=== PATIENT | female | born 1955 | race Caucasian/White ===

== ENCOUNTER → 2021-07-17 | Outpatient (CLI) | payer MEDICARE ==
[2015-10-12 10:07] VITALS: BP 115/74
[~2021-07-17] MED LIST: ASCO-78 PO; ASPI-630 PO; CIPR500T94 PO; FELO10TA4 PO; GLUC1TAB44 PO; HYDR-2761 PO; LISI1TAB37 PO; MULT-208 PO; OMEG500C PO; SIMV10TA15 PO; VENL150T PO; VITA-8 PO
--- NOTE | 2021-07-17 15:34 | KCIC ---
Examination: MRI of the left shoulder without contrast HISTORY: History of left shoulder pain COMPARISON: None TECHNIQUE: Multiplanar, multisequence MR imaging of the left shoulder performed without contrast FINDINGS: The long head of the biceps tendon within the bicipital groove. The attachment of the long head the b iceps tendon to the superior labral anchor grossly appears intact. The attachment of subscapularis te ndon grossly appears intact. There is full-thickness tear of the supraspinatus tendon with tendon ret raction measuring 1.2 cm. There is extension of fluid from the shoulder joint into the subacromial watkins bdeltoid bursa. The attachment of the infraspinatus tendon grossly appears intact.Moderate increased T2 signal identified in the subscapularis, supraspinatus, infraspinatus tendon likely tendinosis. The acromion is type II. Acromion is type II. There is mild increased signal identified throughout th e labrum likely degenerative change. Moderate degenerative changes identified in the acromioclavicula r joint, glenohumeral joint. There is obscuration of fat in the the rotator interval. Mild subcutaneo us increased T2 signal identified posterior to the humerus probably edema IMPRESSION: 1. Full-thickness tear of the supraspinatus tendon with tendon retraction measuring 1.2 cm. There is extension of fluid from the shoulder joint into the subacromial subdeltoid bursa. 2. Moderate rotator cuff tendinosis. 3. There is obscuration of fat in the rotator interval. Correlate for adhesive capsulitis. 4. Moderate degenerative changes acromioclavicular joint, glenohumeral joint. Electronically signed by: Edin Benson MD (07/17/2021 3:31 PM) [id number]
== END ==
LOC: KCIC MRI 12:42
PROVIDERS: ATTEND Orthopaedic Surgery
DX: M75.122 Complete rotator cuff tear or rupture of left shoulder, not specified as traumatic (principal); M75.02 Adhesive capsulitis of left shoulder; M25.812 Other specified joint disorders, left shoulder
CPT/HCPCS: 73221

== ENCOUNTER → 2021-12-20 | Day surgery (SDC) | payer MEDICARE ==
[~2021-12-20] VITALS: Ht 160 cm; Wt 93.0 kg
[~2021-12-20] MED LIST changes: +AMLO-187 PO; +IV RINGERS,LACTATED 1000ML 1,000 ML IV SCH; +PHEN37.53 PO; +PROPOFOL 10 MG/ML (20ML) VIAL. IV ONE
[2021-12-20 07:15] VITALS: BP 136/67
[2021-12-20 08:29] VITALS: BP 118/56
== END | disposition home or self-care (01) ==
LOC: ENDOS 06:46
PROVIDERS: ATTEND Internal Medicine Gastroenterology
DX: R19.5 Other fecal abnormalities (principal); K64.0 First degree hemorrhoids; K57.30 Diverticulosis of large intestine without perforation or abscess without bleeding; K63.89 Other specified diseases of intestine; I10 Essential (primary) hypertension; E78.00 Pure hypercholesterolemia, unspecified; E66.9 Obesity, unspecified; M19.90 Unspecified osteoarthritis, unspecified site; F32.9 Major depressive disorder, single episode, unspecified; Z79.899 Other long term (current) drug therapy; Z79.82 Long term (current) use of aspirin; Z90.49 Acquired absence of other specified parts of digestive tract; Z98.890 Other specified postprocedural states
CPT/HCPCS: 45378; J2704